=== PATIENT | female | born 1995 | race Caucasian/White ===

== ENCOUNTER 2016-03-19 16:04 | Emergency (ER) | payer OTHER ==
[2016-03-19 16:14] VITALS: BP 104/65; PULSE 110; RESP 20; TEMP 97.3; O2SAT 99
--- NOTE | 2016-03-19 16:42 | DX ---
Left Foot , Three History:Pain post trauma. Slipped down stairs yesterday. Pain is dorsal. Findings: No acute or subacute fracture or dislocation is identified. Is a dorsal os trigonum. Impression: Nothing acute identified.
--- NOTE | 2016-03-19 16:56 | EDPHY ---
General Narrative: CHIEF COMPLAINT: left foot pain HISTORY OF PRESENT ILLNESS: slipped down stairs yesterday, striking the dorsum of her left foot. Mild pain when ambulatory. No pain at rest. No radiating pain. No weakness, numbness or tingling. No cyanosis or pallor. She is not concerned about this but her parents were, but she is here. No further complaints. No other associated complaints or modifying factors PRIOR ORTHO INJURIES: Minor ESTABLISHED ORTHOPEDIST: none REVIEW OF SYSTEMS: Ten systems reviewed and are negative unless otherwise noted in the HPI EXAMINATION General Appearance: Alert, no distress Head: normocephalic, atraumatic Eyes: Pupils equal and round, no conjunctival pallor or injection Neck: Normal inspection Respiratory: No dyspnea or retractions. No distress Cardiovascular: Pulses normal throughout. Brisk cap refill Gastrointestinal: No distention Neurological: A&O, sensory symmetric, strength symmetric Skin: Warm and dry, no rash. No ecchymoses, lacerations or abrasions Extremities: mild tenderness to palpation of the dorsal left foot. Range of motion is intact. No cyanosis or pallor. Neurovascular intact distal to the injury. No tenderness of the left heel, toes or knee. Psychiatric: Mood and affect normal DIFFERENTIAL DIAGNOSES: Including but not limited to Sprain, strain, fracture, deep contusion, dislocation MDM: acute sprain of the left foot without any obvious acute abnormalities on x- ray. Neurovascular intact without any abnormalities or signs of trauma. She is fully ambulatory here in the ER. She does not want any further intervention and she would like to be discharged home. She has someone that she can call, additionally I will provide orthopedic follow-up information should she need it. Patient is comfortable this plan and discharged home stable condition. ED Precautions: Worsening pain. Erythema, edema, cyanosis, pallor, paresthesia or anesthesia. SUPERVISION: This patient was independently evaluated without the aide of supervising physician. - History Smoking Status: Never smoked - Objective Vital Signs: Initial Vital Signs Temperature (C) 97.3 F 03/19/16 16:11 Heart Rate 110 H 03/19/16 16:11 Respiratory Rate 20 03/19/16 16:11 Blood Pressure 104/65 03/19/16 16:11 O2 Sat (%) 99 03/19/16 16:11 O2 Delivery Mode Room Air Allergies/Adverse Reactions: prednisone Allergy (Verified 03/19/16 16:11) Home Medications: Medication Instructions Recorded THUAN 03/19/16 Departure - Departure Disposition: Home, Routine, Self-Care Clinical Impression: Sprain of foot, left Qualifiers: Qualifier Code: (S93.602A) Unspecified sprain of left foot, initial encounter Condition: Good Instructions: Foot Sprain (ED) Additional Instructions: Follow-up with primary care physician or orthopedist for definitive care. Return to ER for worsening pain, numbness or tingling [place]errals: [place],. [Primary Care Provider] - As per Instructions Paola Fields MD [Medical Doctor] - As per Instructions
== END 2016-03-19 17:00 | disposition home or self-care (01) ==
DX: S93.602A Unspecified sprain of left foot, initial encounter (principal); W18.49XA Other slipping, tripping and stumbling without falling, initial encounter

== ENCOUNTER 2016-06-06 17:25 | Emergency (ER) | payer OTHER ==
[2016-06-06 17:36] VITALS: RESP 18; TEMP 99
[2016-06-06] MEDS ORDERED: NS 1,000 ML IV ONE ×2 (17:57)
[2016-06-06] MEDS ORDERED: ONDANSETRON 4 MG/2 ML VIAL IVP ONE (17:57)
[2016-06-06 18:03] LABS: % IMMATURE GRANULYOCYTES 0.1 % (0.0-1.1); ABSOLUTE IMMATURE GRANULOCYTES 0.01 10^3/uL (0.00-0.10); ADD DIFF? NO; ADD MORPH? NO; ADD SCAN? NO; ATYPICAL LYMPHOCYTE FLAG 10 (0-99); FRAGMENT RBC FLAG 0 (0-99); HEMATOCRIT 43.7 % (38.0-47.0); HEMOGLOBIN 14.5 g/dL (12.6-16.3); LEFT SHIFT FLG 0 (0-99); LIPEMIA HEMOLYSIS FLAG 80 (0-99); MEAN CELL HEMOGLOBIN 25.9 pg (27.9-34.1); MEAN CELL HEMOGLOBIN CONCENTR. 33.2 g/dL (32.4-36.7); MEAN CELL VOLUME 78.2 fL (81.5-99.8); MEAN PLATELET VOLUME 10.8 fL (8.7-11.7); PLATELET CLUMPS FLAG 0 (0-99); PLATELET COUNT 225 10^3/uL (150-400); RED BLOOD CELL COUNT 5.59 10^6/uL (4.18-5.33); RED CELL DISTRIBUTION WIDTH 15.2 % (11.5-15.2)
[2016-06-06 18:17] LABS: ALANINE AMINOTRANSFERASE 50 IU/L (9-52); ALKALINE PHOSPHATASE 96 IU/L (38-126); ANION GAP 13 mEq/L (8-16); ASPARTATE AMINOTRANSFERASE 28 IU/L (14-46); BILIRUBIN-CONJUGATED 0.3 mg/dL (0.0-0.5); BILIRUBIN-UNCONJUGATED 1.7 mg/dL (0.0-1.1); CALCIUM 10.1 mg/dL (8.5-10.4); CARBON DIOXIDE 23 mEq/l (22-31); CHLORIDE 102 mEq/L (97-110); CREATININE 0.8 mg/dL (0.6-1.0); GLOMERULAR FILTRATION RATE > 60; GLUCOSE 101 mg/dL (70-100); POTASSIUM 3.6 mEq/L (3.5-5.2); SODIUM 138 mEq/L (134-144); TOTAL PROTEIN 8.6 g/dL (6.3-8.2)
--- NOTE | 2016-06-06 18:18 | EDPHY ---
H & P Stated Complaint: N/V/D since this morning; states fever to 101 - Personal History LMP (Females 10-55): IUD In Place Current Tetanus Diphtheria and Acellular Pertussis (TDAP): Yes - Medical/Surgical History Hx Asthma: No Hx Chronic Respiratory Disease: No Hx Diabetes: No Hx Cardiac Disease: No Hx Renal Disease: No Hx Cirrhosis: No Hx Alcoholism: No Hx HIV/AIDS: No Hx Splenectomy or Spleen Trauma: No Other PMH: denies - Social History Smoking Status: Never smoked HPI/ROS: Chief complaint: Nausea, vomiting and diarrhea History of present illness: This is an otherwise healthy 20-year-old female who presents to the emergency department for evaluation nausea, vomiting and diarrhea. Patient states symptoms began this morning when she woke up. Initially nausea but then vomiting, multiple episodes described as nonbloody. She subsequently has developed diarrhea. Loose stool described as nonbloody. She has had associated abdominal cramping. She denies precipitating factors. She denies alleviating factors. She denies other associated signs or symptoms including no fevers or urinary symptoms. No report of sick contacts, foreign travel, environmental exposure or antibiotic use. Review of systems: A 10 point review of systems was obtained and other than described above was negative (Shayan Nixon) - Physical Exam Exam: General Appearance: Alert, nontoxic. Eyes: Pupils equal and round no pallor or injection. ENT, Mouth: Mucous membranes moist. Respiratory: There are no retractions, lungs are clear to auscultation. Cardiovascular: Regular rate and rhythm. Gastrointestinal: Abdomen is soft and nontender, no masses, bowel sounds normal. Neurological: Alert and oriented x4. Strength and sensation intact and symmetrical. Skin: Warm and dry, no rashes. Musculoskeletal: Neck is supple nontender. Extremities are symmetrical, full range of motion. Psychiatric: Patient is oriented X 3, there is no agitation. (Shayan Nixon) Constitutional: Initial Vital Signs Temperature (C) 37.2 C 06/06/16 17:33 Heart Rate 106 H 06/06/16 17:33 Respiratory Rate 18 06/06/16 17:33 Blood Pressure 121/79 H 06/06/16 17:33 O2 Sat (%) 98 06/06/16 17:33 O2 Delivery Mode Room Air Allergies/Adverse Reactions: prednisone Allergy (Intermediate, Verified 06/06/16 17:35) face swells Home Medications: Medication Instructions Recorded MIRENA 03/19/16 Ondansetron Odt [Zofran Odt 4 mg 4 mg PO Q4 #6 tab 06/06/16 (*)] Medical Decision Making ED Course/Re-evaluation: The patient was evaluated and managed by the physician's transport assistant. My cosignature indicates that I reviewed the chart and I agree with the findings and plan of care as documented. I am the secondary supervising physician. ( Karon Chairez) Patient seen under the supervision of my secondary supervising physician Dr. Karon Chairez. Patient presents to the emergency department for nausea, vomiting and diarrhea. She is nontoxic. Physical exam is unremarkable including a benign abdominal exam. Serial abdominal exams remain benign. Blood studies are largely unremarkable. Patient is IV hydrated and treated with antiemetics. She is feeling better. She is tolerating oral challenges. I do not appreciate need for further emergency department intervention including imaging studies or inpatient management. Patient is discharged home. Home care is discussed. She is asked to follow up with primary care doctor for recheck. Return precautions are given. Patient voiced understanding and agreement with plan. (Shayan Nixon) Differential Diagnosis: Included but not limited to gastritis, gastroenteritis, biliary tract disease, pancreatitis, colitis (Shayan Nixon) - Data Points Laboratory Results: Laboratory Results 06/06/16 17:58 06/06/16 17:58 06/06/16 06/06/16 06/06/16 17:58 17:58 17:58 WBC 7.18 10^3/uL 10^3/uL (3.80-9.50) RBC 5.59 10^6/uL H 10^6/uL (4.18-5.33) Hgb 14.5 g/dL g/dL (12.6-16.3) Hct 43.7 % % (38.0-47.0) MCV 78.2 fL L fL (81.5-99.8) MCH 25.9 pg L pg (27.9-34.1) MCHC 33.2 g/dL g/dL (32.4-36.7) RDW 15.2 % % (11.5-15.2) Plt Count 225 10^3/uL 10^3/uL (150-400) MPV 10.8 fL fL (8.7-11.7) Neut % (Auto) 88.3 % H % (39.3-74.2) Lymph % (Auto) 6.3 % L % (15.0-45.0) Dickenson % (Auto) 4.9 % % (4.5-13.0) Eos % (Auto) 0.3 % L % (0.6-7.6) Baso % (Auto) 0.1 % L % (0.3-1.7) Nucleat RBC Rel Count 0.0 % % (0.0-0.2) Absolute Neuts (auto) 6.34 10^3/uL 10^3/uL (1.70-6.50) Absolute Lymphs (auto) 0.45 10^3/uL L 10^3/uL (1.00-3.00) Absolute Monos (auto) 0.35 10^3/uL 10^3/uL (0.30-0.80) Absolute Eos (auto) 0.02 10^3/uL L 10^3/uL (0.03-0.40) Absolute Basos (auto) 0.01 10^3/uL L 10^3/uL (0.02-0.10) Absolute Nucleated RBC 0.00 10^3/uL 10^3/uL (0-0.01) Immature Gran % 0.1 % % (0.0-1.1) Immature Gran # 0.01 10^3/uL 10^3/uL (0.00-0.10) Sodium 138 mEq/L mEq/L (134-144) Potassium 3.6 mEq/L mEq/L (3.5-5.2) Chloride 102 mEq/L mEq/L (97-110) Carbon Dioxide 23 mEq/l mEq/l (22-31) Anion Gap 13 mEq/L mEq/L (8-16) BUN 14 mg/dL mg/dL (7-23) Creatinine 0.8 mg/dL mg/dL (0.6-1.0) Estimated GFR > 60 Glucose 101 mg/dL H mg/dL (70-100) Calcium 10.1 mg/dL mg/dL (8.5-10.4) Total Bilirubin 2.0 mg/dL H mg/dL (0.1-1.4) Conjugated Bilirubin 0.3 mg/dL mg/dL (0.0-0.5) Unconjugated Bilirubin 1.7 mg/dL H mg/dL (0.0-1.1) AST 28 IU/L IU/L (14-46) ALT 50 IU/L IU/L (9-52) Alkaline Phosphatase 96 IU/L IU/L (38-126) Total Protein 8.6 g/dL H g/dL (6.3-8.2) Albumin 5.0 g/dL g/dL (3.5-5.0) Lipase 86.0 IU/L IU/L (23-300) Beta HCG, Qual NEGATIVE Medications Given: Discontinued Medications Sodium Chloride (Ns) 1,000 mls @ 0 mls/hr IV ONCE ONE PRN Reason: Wide Open Stop: 06/06/16 17:58 Last Admin: 06/06/16 18:00 Dose: 1,000 mls Sodium Chloride (Ns) 1,000 mls @ 0 mls/hr IV ONCE ONE PRN Reason: Wide Open Stop: 06/06/16 17:58 Last Admin: 06/06/16 18:17 Dose: 1,000 mls Ondansetron HCl (Zofran) 4 mg IVP EDNOW ONE Stop: 06/06/16 17:58 Last Admin: 06/06/16 18:16 Dose: 4 mg Ondansetron HCl (Zofran Odt 4 Mg Prepack#2) 1 btl TAKEHOME EDNOW ONE Stop: 06/06/16 18:58 Last Admin: 06/06/16 19:00 Dose: 1 btl Departure - Departure Disposition: Home, Routine, Self-Care Clinical Impression: Vomiting and diarrhea Condition: Good Instructions: Ondansetron (By mouth), Acute Nausea and Vomiting (ED), Acute Diarrhea (ED) Additional Instructions: Follow-up with her primary care doctor for recheck If symptoms worsen or new symptoms develop return to the emergency room for recheck Referrals: YENNY BERG [Other] - As per Instructions Prescriptions: Ondansetron Odt [Zofran Odt 4 mg (*)] 4 mg PO Q4 #6 tab
[2016-06-06] MEDS ORDERED: ONDANSETRON 4MG PREPACK#2 BTL TAKEHOME ONE (18:57)
[2016-06-06 19:07] VITALS: BP 110/71; PULSE 94; O2SAT 95
== END 2016-06-06 19:07 | disposition home or self-care (01) ==
DX: R11.10 Vomiting, unspecified (principal); R19.7 Diarrhea, unspecified
CPT/HCPCS: 96374; J2405